=== PATIENT | female | born 1975 | race Caucasian/White ===

== ENCOUNTER → 2024-04-24 19:05 | Outpatient (REF) | payer BC, SELFPAY | LOC: WDC 19:05 | PROVIDERS: ATTENDING PHYSICIAN Obstetrics & Gynecology | DX: Z12.31 Encounter for screening mammogram for malignant neoplasm of breast (principal) | CPT/HCPCS: 77063; 77067 ==

== ENCOUNTER → 2024-10-25 09:10 | Outpatient (REF) | payer BC, SELFPAY | LOC: WDC 09:10 | PROVIDERS: ATTENDING PHYSICIAN Obstetrics & Gynecology; FAMILY PHYSICIAN Family Medicine | DX: N64.4 Mastodynia (principal); N60.01 Solitary cyst of right breast | CPT/HCPCS: 76642; 77061; 77065 ==

== ENCOUNTER → 2024-11-01 08:20 | Outpatient (REF) | payer BC, SELFPAY ==
--- NOTE | 2024-11-01 13:59 | OID.BR.INTR ---
[facility] Breast Navigator - Initial
- -
Date of Contact: 11/01/24
Met with patient. Patient given written information on navigator service available at [facility]. Will follow up as needed per protocol.
== END ==
LOC: WDC 08:20
PROVIDERS: ATTENDING PHYSICIAN Obstetrics & Gynecology
DX: N63.10 Unspecified lump in the right breast, unspecified quadrant (principal)
CPT/HCPCS: 88305; 19083; A4648

== ENCOUNTER → 2024-11-15 12:49 | Outpatient (REF) | payer BC, SELFPAY | LOC: WDC 12:49 | PROVIDERS: ATTENDING PHYSICIAN Surgery | DX: R92.2 Inconclusive mammogram (principal) | CPT/HCPCS: 76641 ==

== ENCOUNTER → 2024-11-21 07:05 | Outpatient (REF) | payer BC, SELFPAY | LOC: WDC 07:05 | PROVIDERS: ATTENDING PHYSICIAN Surgery | DX: C50.411 Malignant neoplasm of upper-outer quadrant of right female breast (principal) | CPT/HCPCS: 19285; 38792; 76942; A4648; A9541 ==

== ENCOUNTER 2024-11-22 06:09 | Day surgery (SDC) | payer BC, SELFPAY ==
[2024-11-15 08:58] LABS: Hematocrit 41.9 % (37.0-47.0); Hemoglobin 14.3 g/dL (12.0-16.0); Mean Corp Hgb Conc. 34.1 g/dL (33.0-37.0); Mean Corpuscular Hgb 30.8 pg (27.0-31.0); Mean Corpuscular Volume 90.3 fL (81.0-99.0); Mean Platelet Volume 10.4 fL (7.4-10.4); Platelet Count 290 10^3/uL (130-400); Red Blood Cell Count 4.64 10^6/uL (4.20-5.40); Red Cell Dist. Width 12.7 % (11.5-14.5); White Blood Cell Count 6.6 10^3/uL (4.8-10.8)
[2024-11-15 09:42] LABS: Vitamin D, 25-OH*** 54.2 ng/mL (30-80)
[2024-11-15 09:49] LABS: ALT (SGPT) 15 U/L (0-35); AST (SGOT) 24 U/L (14-36); Albumin 4.9 g/dl (3.5-5.0); Alkaline Phosphatase 39 U/L (38-126); Blood Urea Nitrogen 12 mg/dl (7-17); Calcium 9.8 mg/dl (8.4-10.2); Carbon Dioxide 25 mmol/L (22-30); Chloride 106 mmol/L (98-107); Glucose 92 mg/dl (70-99); Potassium 4.6 mmol/L (3.5-5.1); Sodium 141 mmol/L (135-145); Total Bilirubin 0.9 mg/dl (0.2-1.3); Total Protein 7.6 g/dl (6.3-8.2); eGFR > 60.00
[2024-11-15 13:04] VITALS: BMI 19.9
[2024-11-22] VITALS (8 sets, daily range): BP systolic 101–118; BP diastolic 32–78; BMI 19.9
[2024-11-22] MEDS: LOVENOX 40 MG SC (06:28)
[2024-11-22] MEDS: TYLENOL 1000 MG PO (06:28)
[2024-11-22] MEDS: NORMOSOL-R/PLASMALYTE-A 1000 IV (06:37)
== END 2024-11-22 11:50 | disposition home or self-care (01) ==
LOC: SDS 06:09
PROVIDERS: ATTENDING PHYSICIAN Surgery; FAMILY PHYSICIAN Family Medicine
DX: C50.911 Malignant neoplasm of unspecified site of right female breast (principal); D24.1 Benign neoplasm of right breast
CPT/HCPCS: 19301; 38525; 88305; 88307; 88332; 76098; 80053; 82306; 84134; 85027; 88331; 88342; 93005; A4648; L8000

== ENCOUNTER 2024-12-31 10:27 | Inpatient (IN) | payer BC, SELFPAY ==
[2024-12-31] VITALS (10 sets, daily range): BP systolic 0–118; BP diastolic 49–63; BMI 20.6
[2024-12-31] MEDS: LOVENOX 40 MG SC (10:54)
[2024-12-31] MEDS: TYLENOL 1000 MG PO ×3 (10:54→23:15)
[2024-12-31] MEDS: NORMOSOL-R/PLASMALYTE-A 1000 IV (10:55)
--- NOTE | 2024-12-31 14:55 | W.IMMPOSTOP ---
Surgical Immed Post Op Note
-
Primary Surgeon: DANA Gonzalez MD
Assisting Surgeon:
Pre-op Diagnosis: Right breast cancer
Post-op Diagnosis: Same
Procedure Performed: Bilateral immediate breast reconstruction with tissue expanders, insertion of ADM mesh
Anesthesia Type: General
Specimen / Cultures: Per Dr. Law
Estimated Blood Loss: 30 cc total
Complications: None
Operative Findings: As expected
--- NOTE | 2024-12-31 14:55 | OR.RPT ---
Operative Report
Operative Report
Date of Surgery: 12/31/24
Surgeon: DANA Gonzalez MD
Preoperative diagnosis: Right breast cancer, status post lumpectomy
Postoperative diagnosis: Same
Procedure:
1. Bilateral immediate reconstruction of the breast with tissue expanders
2. Insertion of ADM mesh, bilateral
Anesthesia: General
Complications: None
EBL: 30 cc total
Specimens: Per Dr. Law
Indication for procedure: Patient is a 49-year-old female who underwent prior right sided lumpectomy and sentinel lymph node biopsy. She was referred by Dr. Law due to the need to perform a mastectomy. The patient desired to undergo bilateral
mastectomy. We discussed reconstructive options at length including both autologous and implant-based methods. She elected to undergo two-stage tissue manager training and development reconstruction. This was appropriate given her thin frame and the prior surgical
incision from the lumpectomy. Plan was made for a partial submuscular placement of the tissue manager training and development and ADM sling. This was explained at length to the patient. Risks of the procedure include mastectomy skin flap necrosis, nipple loss,
reconstructive failure, infection, hematoma, seroma. She understood these risks and desired to proceed and consented accordingly.
Procedure in detail: Patient was identified preoperatively and the surgical site was confirmed to be the bilateral breast. Bilateral inframammary fold incisions were drawn out. All questions were answered and consents were confirmed. Patient was
taken back the operating room placed supine on table. Anesthesia was induced and the patient was prepped and draped in usual sterile fashion using ChloraPrep solutions. Dr. Law performed her prior to the procedure first and this will be
dictated separately. She first performed a right sided nipple sparing mastectomy followed by left-sided mastectomy. After the right side was complete, I entered the case and inspected the wound. Meticulous hemostasis was ensured and pectoral
intercostal blocks were performed with dilute Marcaine. The pectoralis muscle was then elevated off the chest wall keeping pectoralis minor down and released from its attachments to the inframammary fold. Base width was measured to be 11 cm and
the associated tissue manager training and development was then selected. A sheet of core TIVA ADM was opened and rinsed then soaked in dilute Betadine. This was perforated with a 15 blade and then sutured along the inframammary fold and lateral breast margin using 2-0
Vicryl sutures. It was contoured to create a sling and the tissue manager training and development was inserted under the muscle. This was sutured in place with 2-0 silk to the chest wall. The pectoralis was then advanced over the tissue manager training and development and sutured to the mesh
construct with 2-0 Vicryl's. 2 Tony drains were left and tunneled with a long subcutaneous tunnel along the preaxillary line. These were sutured in place with 2-0 Prolene. Meticulous hemostasis was ensured prior to closure. The wound was
thoroughly irrigated with double antibiotic solution followed by dilute Betadine and allowed to soak extensively. Inframammary fold incision was then closed with a running 3-0 Vicryl followed by 3-0 and 4-0 Monocryl in the deep dermis and
superficial skin. Following completion of the mastectomy on the left side, the exact same procedure was performed on the left. Meticulous hemostasis was ensured after inspection the pectoralis was raised off the chest wall and its attachments were
divided along the inframammary fold. Piece of ADM was rinsed and soaked in Betadine and then sutured to the inferior and lateral aspect of the breast footprint. An 11 cm tissue manager training and development was placed and sutured to the chest wall with a 2-0 silk.
The pectoralis was advanced and sutured together with the mesh construct with a series of 2-0 Vicryl's. 2 drains were left and tunneled in the preaxillary line. Marcaine more blocks were performed bilaterally to the pectoralis and intercostal
muscles. Patient tolerated procedure well, was performed without complication. All counts were correct at the end the case. She was extubated taken the PACU further care.
--- NOTE | 2024-12-31 15:47 | OR.RPT ---
Operative Report
Operative Report
Date of Procedure: 12/31/24
Surgeon: Ani
Pre-Op DX: Right breast carcinoma
Post-Op DX: Right breast carcinoma
Procedure: Bilateral nipple sparing mastectomies
The patient is a 49-year-old female who had previously undergone a right lumpectomy and sentinel node mapping and biopsy for right breast carcinoma. She had extensive DCIS associated with the tumor and had 2 positive margins and she presents now
for bilateral mastectomies and immediate reconstruction with tissue expanders.
On the day of the procedure the patient presented to the same-day surgical services. She was prepped and verified site and procedure. DVT and antibiotic prophylaxis were delivered and she was taken to the operating room. In the supine position
general anesthesia with an LMA mask was induced. Both breasts and chest were prepped and draped in the usual sterile fashion. Plastic surgery had marked the inframammary incisions. Both breasts were approached in the same fashion. The
inframammary incision was incised sharply with the blade. Dissection was carried down to pectoral fascia and the breast was elevated off the pectoralis major using the lighted InVuity retractor and the PlasmaBlade. Next the skin was elevated off
of the breast in the oncoplastic plane using the Invuity retractor and PlasmaBlade. Any larger vessels were tied with 3-0 silk or 3-0 silk suture ligature. The breast was removed en bloc oriented for the pathologist and sent for permanent
analysis. Time out of body was noted. Hemostasis was verified and packs were placed in the wounds. Plastic surgery entered after the removal of the first breast to begin the reconstructive portion of the procedure. At this juncture all sponge
needle and instrument counts were correct and the blood loss was 20 ccm
[id number])
[2024-12-31] MEDS: NEURONTIN 100 MG PO ×2 (16:14→21:25)
[2024-12-31] MEDS: VALIUM 5 MG PO ×2 (16:15→21:25)
--- NOTE | 2024-12-31 16:48 | PTCARENOTE ---
Pt arrived to 2S in bed. Full assessment completed. B/L breast DSGs C/D/I, incision soft around the site, no hematoma noted. DSGs and surgical bra maintained. B/L KIERA drain sites C/D/I, sanguinous output noted in the tubing. Pt instructed on regular
diet and to ring for assistance with ambulation, verbalized understanding. Bed locked and in the lowest position, safety maintained. Oriented to room and call gonzalez, spouse at bedside.
[2024-12-31] MEDS: ANCEF 5 IV (20:14)
[2025-01-01] MEDS: NSS 1000 IV (00:14)
[2025-01-01 00:39] LABS: Hematocrit 36.3 % (37.0-47.0); Hemoglobin 12.4 g/dL (12.0-16.0); Mean Corp Hgb Conc. 34.2 g/dL (33.0-37.0); Mean Corpuscular Hgb 31.2 pg (27.0-31.0); Mean Corpuscular Volume 91.2 fL (81.0-99.0); Platelet Count 241 10^3/uL (130-400); Red Blood Cell Count 3.98 10^6/uL (4.20-5.40); Red Cell Dist. Width 12.7 % (11.5-14.5); White Blood Cell Count 13.5 10^3/uL (4.8-10.8)
[2025-01-01 00:49] LABS: Blood Urea Nitrogen 11 mg/dl (7-17); Calcium 8.4 mg/dl (8.4-10.2); Carbon Dioxide 23 mmol/L (22-30); Chloride 112 mmol/L (98-107); Estimated Creatinine Clearance 100 ml/min; Glucose 160 mg/dl (70-99); Potassium 4.9 mmol/L (3.5-5.1); Sodium 137 mmol/L (135-145); eGFR > 60.00
--- NOTE | 2025-01-01 02:00 | PTCARENOTE ---
Pt BP running soft 90's/50's. Bruising noted on right upper breast. Dr. Law and JONATHAN Giron notified. JONATHAN Giron ordered Stat H&H and IVF @ 80mL/hr. H&H resulted 12.4 & 36.3. Labs ordered for the morning. Care ongoing.
[2025-01-01] MEDS: ANCEF 5 IV (03:06)
[2025-01-01 03:13] VITALS: BP 92/50
[2025-01-01] MEDS: TYLENOL 1000 MG PO ×2 (05:49→11:07)
[2025-01-01 06:52] VITALS: BP 102/62
[2025-01-01 07:20] LABS: Hematocrit 35.9 % (37.0-47.0); Hemoglobin 12.2 g/dL (12.0-16.0); Mean Corpuscular Volume 91.3 fL (81.0-99.0); Mean Platelet Volume 10.3 fL (7.4-10.4); Platelet Count 262 10^3/uL (130-400); Red Blood Cell Count 3.93 10^6/uL (4.20-5.40); Red Cell Dist. Width 12.8 % (11.5-14.5); White Blood Cell Count 12.6 10^3/uL (4.8-10.8)
[2025-01-01 07:45] LABS: Blood Urea Nitrogen 8 mg/dl (7-17); Calcium 8.4 mg/dl (8.4-10.2); Carbon Dioxide 19 mmol/L (22-30); Chloride 111 mmol/L (98-107); Estimated Creatinine Clearance 100 ml/min; Glucose 108 mg/dl (70-99); Potassium 4.5 mmol/L (3.5-5.1); Sodium 137 mmol/L (135-145); eGFR > 60.00
--- NOTE | 2025-01-01 07:52 | W.PN.UPDATE ---
Update Note
Progress Note Update
Called last night by nursing staff regarding possible hematoma. There is bruising in the right axillary region and a small hematoma which the drain should take care of. Pt's Hgb was 12.4.
Discharge per Plastics, she will follow up in my office in two weeks.
[2025-01-01] MEDS: NEURONTIN 100 MG PO (08:09)
[2025-01-01] MEDS: VALIUM 5 MG PO (08:09)
--- NOTE | 2025-01-01 09:28 | CM ---
CM following re: discharge planning.
Reviewed pt's chart, met with pt and pt's Sanket at bedside.
Pt is a 49 year old female, admitted with primary dx of Right breast carcinoma, POD#1 s/p Bilateral nipple sparing mastectomies. Per Surgeon, pt most likely will be discharged today and pt will need VN services with RN visit next day of discharge
for drain care. Pt preferred [facility]. A referral to VN made.
Pt reports she lives with 2SH, 2 steps to enter, has 3 supportive children. Pt described herself as independent in all areas [employer], works, drives.
PCP: Mary Mckinney
Pharmacy: [address]
[facility] at [phone]
D/C plan: home with [facility] and family support. to transport.
--- NOTE | 2025-01-01 09:30 | W.PN.PLAS ---
Progress Note
Subjective Data
Doing well, denies shortness of breath, pain well-controlled
Subjective: Tolerating Regular Diet and Ambulatory
Objective Data
Vital Signs
Temp Pulse Resp BP Pulse Ox
98.1 F 90 17 102/62 99
01/01/25 06:52 01/01/25 06:52 01/01/25 06:52 01/01/25 06:52 01/01/25 06:52
Intake and Output
12/31/24 01/01/25 01/02/25
06:59 06:59 06:59
Intake Total 2380 / 2380
Output Total 470 / 470
Balance 1910 / 1910
Intake:
Oral fluids 2280 / 2280
IV fluids (Total) 100 / 100
Normosol 100 / 100
Output:
Drain Output (Total) 470 / 470
Left Alexis-Paredes C 50 / 50
Left Alexis-Paredes D 145 / 145
Right Alexis-Paredes A 180 / 180
Right Alexis-Paredes B 95 / 95
Other:
Number of approximated MODERATE 1
amounts of urine
Physical exam:
No acute distress
No increased work of breathing
Bilateral tissue expanders in place
No undrained fluid collections
Drain serosanguineous with appropriate output
Well-perfused mastectomy skin flaps
Expected postoperative ecchymosis
Lab Results
01/01/25 06:33
01/01/25 06:33
Assessment / Plan
Status post bilateral mastectomy and immediate reconstruction with tissue expanders, ADM. Doing very well. Ready for discharge
Home with visiting nurse
Close surgical follow-up
--- NOTE | 2025-01-01 09:31 | W.DCSUMMARY ---
Discharge Summary
Discharge Data
Date of Admission: 12/31/24
Date of Discharge: 01/01/25
-
Pending Results: No
Hospital Course
Admitted following bilateral mastectomy Demeter reconstruction with tissue expanders. Followed a routine postoperative course. Pain was well-controlled on oral meds. She was able to ambulate, void, tolerated regular diet. She was discharged with
visiting nurse and close surgical follow-up.
Discharge Plan
-
Patient Disposition: Home (Routine Discharge)
Discharge Diagnosis/Procedures: s/p bilateral mastectomy and immediate inventory management specialist reconstruction
Condition: Good
Diet: Regular
Activity: No strenuous activity
Additional Activity: Ho heavy lifting >10lbs, light compressive bra, T-Ramob Arms
Driving Restrictions: Not until seen by your Dr
Bathing Restrictions: OK to Shower
Other Services: VN
Referrals:
Mary Graves DO [Family Provider] -
Prescriptions:
New
tramadol 50 mg Tablet
50 mg PO Q6HPRN PRN (Reason: severe pain) 7 Days Qty: 14 0RF
acetaminophen [Tylenol Extra Strength] 500 mg Tablet
1,000 mg PO Q6 30 Days Qty: 240 0RF
gabapentin 100 mg Capsule
100 mg PO TID 90 Days Qty: 270 0RF
diazepam 5 mg Tablet
5 mg PO TID 14 Days Qty: 42 0RF
cefadroxil 500 mg capsule
500 mg PO BID Qty: 42 0RF
Continued
ferrous sulfate [iron] 325 mg (65 mg iron) Tablet
325 mg PO BID
cholecalciferol (vitamin D3) [Vitamin D3] 50 mcg (2,000 unit) Capsule
50 mcg PO BID
Discharge Orders:
Discharge Patient (As Directed); Ordered 01/01/25
Ordered By: Edgar Gonzalez
Discharge Date and Time
Print Language: SWEDISH
--- NOTE | 2025-01-01 10:40 | VNURNOTE ---
Home Health Liaison met with patient and family at bedside to discuss [facility] nurse/therapy, visits, schedule and homebound status. Patient is agreeable and understands that visits at home will be 2-3 x per week to assess and teach medical management.
Patient is aware that [facility] will contact them for start of care in 1-2 days after discharge from .
[facility] referral completed in Care Port.
[2025-01-01 11:19] VITALS: BP 100/58
[2025-01-01] MEDS: ANCEF IV (12:14)
== END 2025-01-01 12:37 | disposition home health service (06) | DRG 583 ==
LOC: 2 SOUTH 10:27
PROVIDERS: Nurse Practitioner Family; ADMITTING PHYSICIAN Surgery; FAMILY PHYSICIAN Family Medicine; REFERRING PHYSICIAN Surgery Plastic and Reconstructive Surgery
PROC: 0HTV0ZZ Resection of Bilateral Breast, Open Approach (ICD-10-PCS; 2024-12-31)
PROC: 0HHV0NZ Insertion of Tissue Expander into Bilateral Breast, Open Approach (ICD-10-PCS; 2024-12-31)
DX: C50.411 Malignant neoplasm of upper-outer quadrant of right female breast (principal); Z42.1 Encounter for breast reconstruction following mastectomy; Z17.0 Estrogen receptor positive status [ER+]; Z40.01 Encounter for prophylactic removal of breast
CPT/HCPCS: 88307; 80048; 85027; 88341; 88342; C1789; Q4100

== ENCOUNTER → 2025-02-14 08:18 | Outpatient (REF) | payer BC, SELFPAY | LOC: HWRAD 08:18 | PROVIDERS: ATTENDING PHYSICIAN Obstetrics & Gynecology; FAMILY PHYSICIAN Family Medicine | DX: Z15.02 Genetic susceptibility to malignant neoplasm of ovary (principal) | CPT/HCPCS: 76830; 76856 ==

== ENCOUNTER 2025-03-12 06:21 | Day surgery (SDC) | payer BC, SELFPAY ==
[2025-02-26 09:41] LABS: Hematocrit 42.4 % (37.0-47.0); Hemoglobin 13.9 g/dL (12.0-16.0); Mean Corp Hgb Conc. 32.8 g/dL (33.0-37.0); Mean Corpuscular Volume 92.8 fL (81.0-99.0); Nucleated Red Blood Cells % 0 %; Platelet Count 226 10^3/uL (130-400); Red Cell Dist. Width 12.2 % (11.5-14.5)
[2025-02-26 10:15] LABS: Blood Urea Nitrogen 10 mg/dl (7-17); Calcium 9.3 mg/dl (8.4-10.2); Carbon Dioxide 20 mmol/L (22-30); Chloride 110 mmol/L (98-107); Glucose 89 mg/dl (70-99); Potassium 4.8 mmol/L (3.5-5.1); Sodium 139 mmol/L (135-145); eGFR > 60.00
[2025-02-26 10:19] LABS: Beta HCG Quantitative < 2.39 mIU/ml
[2025-02-26 13:25] VITALS: BMI 10.3
[2025-03-12] VITALS (9 sets, daily range): BP systolic 109–120; BP diastolic 52–67; BMI 18.3
[2025-03-12] MEDS: NEURONTIN 300 MG PO (10:35)
[2025-03-12] MEDS: TYLENOL 1000 MG PO (10:35)
[2025-03-12] MEDS: NORMOSOL-R/PLASMALYTE-A 1000 IV (10:36)
--- NOTE | 2025-03-12 11:00 | W.SUR.PREOP ---
Pre-Operative Surgical Note
-
I have examined this patient prior to the performance of the scheduled procedure.
The patient's condition is unchanged from the time of the current History and
Physical and the patient is able to undergo the scheduled procedure.
--- NOTE | 2025-03-12 14:11 | W.IMMPOSTOP ---
Surgical Immed Post Op Note
-
Primary Surgeon: Jennifer Macias DO
Facilities Flight Check Pilot: TOSHIA Goncalves
Pre-op Diagnosis: Menorrhagia, abnormal pelvic US, fibroid uterus, PALB2 gene mutation, personal hx breast cancer
Post-op Diagnosis: same
Procedure Performed: Hysteroscopy D&C, cervical polypectomyx3, myosure operative hysteroscopic resection of intracavitary fibroid, risk reduction prophylactic laparoscopic bilateral salpingo-oopherectomy, pelvic washings
Anesthesia Type: general ET Dr. Luna
Specimen / Cultures: 1. ecc 2. Cervical and endocervical polyps 3. endometrial curettings 4. resected uterine fibroid 5. right tube and ovary 6, left tube and ovary 7. pelvic washings
Estimated Blood Loss: 5 ml
Complications: none
Operative Findings: Enlarged fibroid uterus, normal appearing tubes and ovaries bilaterally. several cervical polyps.
Intracavitary fibroid in endometrial cavity- resected. Bilateral tubal ostia seen.
Counts correct times 2.
Stable when handed off to Dr. Gonzalez.
--- NOTE | 2025-03-12 16:58 | W.IMMPOSTOP ---
Surgical Immed Post Op Note
-
Primary Surgeon: DANA Gonzalez MD
Assisting Surgeon:
Pre-op Diagnosis: h/o breast CA
Post-op Diagnosis: Same
Procedure Performed: Bilateral removal of tissue expanders and insertion of silicone gel implants, fat grafting to the bilateral breasts
Anesthesia Type: GA
Specimen / Cultures: Per Dr. Polk
Estimated Blood Loss: 10cc
Complications: None
Operative Findings: As expected
--- NOTE | 2025-03-12 16:59 | OR.RPT ---
Operative Report
Operative Report
Date of Surgery: 03/12/25
Surgeon: DANA Gonzalez MD
Preoperative diagnosis: History of breast cancer, surgically acquired absence of bilateral breasts
Postoperative diagnosis: Same
Procedure:
1. Bilateral removal of tissue expanders of the breast
2. Bilateral capsulorrhaphies with extensive modification of the capsule
3. Bilateral insertion of silicone gel breast implants for reconstruction
4. Fat grafting to the bilateral breast with donor site thigh, 150 cc
Anesthesia: General
Complications: None
EBL: 30 cc
Indication procedure: Patient is a 49-year-old female well-known to me for history of breast cancer status post bilateral mastectomy and immediate reconstruction with tissue expanders. She felt a routine postoperative course and was successfully
expanded in the office. She desired to proceed with stage II reconstruction with silicone gel implants after her options were reviewed. Discussion was had about fat grafting to minimize implant rippling and wrinkling and visibility. She is thin,
so donor site would be medial thigh as able. Risk of implants were reviewed at length and consents were signed accordingly.
Procedure in detail: Patient was identified preoperatively and the surgical site was confirmed to be the bilateral breast and medial thighs. Patient was marked in the upright position and all questions were answered and consents were confirmed.
She was taken back the operating placed upon the table. Anesthesia was induced and the patient was prepped and draped in usual sterile fashion using ChloraPrep solution. Timeout for patient safety was performed was confirmed that preoperative
antibiotics had been administered and bilateral SCDs were in place. Procedure began with the injection of tumescent solution in the bilateral medial thighs for the donor site fat grafting. Attention was then drawn back to the right breast where an
incision was made inframammary fold dissection continued with Bovie electrocautery to the level of the capsule. Capsulotomy was performed and the tissue driver messenger was removed. Additional capsulotomies were performed medially and superiorly. A gel
sizer was then placed in the right pocket and was determined that a capsulorrhaphy would need to be performed. This was done inferior laterally to support the implant. An 0 PDS suture was used. The pocket was rinsed with double antibiotic
solution followed by dilute Betadine. Using a no touch technique and a Bains funnel, a Sientra silicone gel cohesive breast implant was placed into the right pocket. This wound was then closed in layers using 2-0 Vicryl followed by 3-0 and 4-0
Monocryl. Attention was then drawn to the left side where the exact same procedure was performed. Inframammary incision was made and the tissue driver messenger was removed after dissecting and performing a capsulotomy. Medial and superior capsulotomies
were performed to increase the pocket size and an inferolateral capsulorrhaphy was made to support the implant. Pocket was irrigated with double antibiotic solution and dilute Betadine and implant plate was placed in a no touch technique.
Approximately 150 cc of fat graft was then harvested from the medial thighs for transfer to the bilateral breast. This was distributed evenly. poke holes were closed with 5-0 fast. Patient tolerated procedure well was performed without
complication. All counts were correct at the end the case.
== END 2025-03-12 19:39 | disposition home or self-care (01) ==
LOC: SDS 06:21
PROVIDERS: ATTENDING PHYSICIAN Obstetrics & Gynecology; FAMILY PHYSICIAN Family Medicine; REFERRING PHYSICIAN Surgery Plastic and Reconstructive Surgery
DX: Z90.13 Acquired absence of bilateral breasts and nipples (principal); Z85.3 Personal history of malignant neoplasm of breast; Z15.02 Genetic susceptibility to malignant neoplasm of ovary; D25.9 Leiomyoma of uterus, unspecified; N84.1 Polyp of cervix uteri; N92.0 Excessive and frequent menstruation with regular cycle; Z15.01 Genetic susceptibility to malignant neoplasm of breast
CPT/HCPCS: 11970; 19370; 15771; 15772 ×2; 58661; 58561; 36415; 80048; 84702; 85025; 86850; 86900; 86901; 88112; 88305; 88341; 88342; C1776; C1789

== ENCOUNTER → 2025-05-13 08:16 | Outpatient (REF) | payer BC, SELFPAY | LOC: RAD 08:16 | PROVIDERS: ATTENDING PHYSICIAN Internal Medicine Hematology & Oncology; FAMILY PHYSICIAN Family Medicine | DX: D50.9 Iron deficiency anemia, unspecified (principal); C50.411 Malignant neoplasm of upper-outer quadrant of right female breast | CPT/HCPCS: 77080 ==